=== PATIENT | male | born 1945 | race Caucasian/White ===

== ENCOUNTER 2023-03-19 09:06 | Outpatient (CLI) | payer MEDICARE, BC ==
[2023-03-19 11:05] LABS: APPEARANCE,URINE CLEAR (CLEAR); BASOPHILS % (AUTO) 0.3 % (0.0-2.0); BILIRUBIN,URINE NEGATIVE (NEGATIVE); BLOOD, URINE TRACE-INTA Ery/uL (NEGATIVE); COLOR,URINE YELLOW (YELLOW); EOSINOPHILS # (AUTO) 0.1 K/uL (0.0-0.7); EOSINOPHILS % (AUTO) 1.2 % (0.0-6.0); HEMATOCRIT 48 % (39-51); HEMOGLOBIN 16.1 g/dL (13.5-17.5); KETONES,URINE NEGATIVE (NEGATIVE); LEUKOCYTE ESTERASE ,URINE NEGATIVE (NEGATIVE); LYMPHOCYTES # (AUTO) 1.7 K/uL (0.8-4.8); LYMPHOCYTES % (AUTO) 24.2 % (20.0-44.0); MEAN CORPUSCULAR HEMOGLOBIN 30 PG (26.0-33.0); MEAN CORPUSCULAR HGB CONC 34 g/dl (31.0-36.0); MEAN CORPUSCULAR VOLUME 88 fL (80-96); MONOCYTES # (AUTO) 0.6 K/uL (0.1-1.30); MONOCYTES % (AUTO) 8.1 % (2.0-12.0); NEUTROPHILS # (AUTO) 4.8 K/uL (1.8-8.9); NEUTROPHILS % (AUTO) 66.2 % (43.0-81.0); NITRITE, URINE NEGATIVE (NEGATIVE); PLATELET COUNT (AUTO) 279 K/uL (150-450); PROTEIN,URINE NEGATIVE (NEGATIVE); RED BLOOD CELL COUNT(AUTO) 5.46 MIL/uL (4.5-6.0); RED CELL DISTRIBUTION WIDTH 13.9 % (11.5-15.0); UGLUCOSE NEGATIVE (NEGATIVE); UROBILINOGEN,URINE 0.2 EU/dL (0.2); WHITE BLOOD COUNT (AUTO) 7.2 K/uL (4.3-11.0)
[2023-03-19 11:06] LABS: INR 0.98 (0.91-1.10); PARTIAL THROMBOPLASTIN TIME 30.1 SEC (24.3-34.3); PROTHROMBIN TIME 10.4 SECS (9.2-11.1)
[2023-03-19 11:13] LABS: CALCIUM, SERUM 9.4 mg/dL (8.5-10.1); CARBON DIOXIDE 30 mmol/L (21-32); CHLORIDE 99 mmol/L (98-107); CREATININE 1.2 mg/dL (0.6-1.3); GLUCOSE 114 mg/dL (74-106); SODIUM SERUM 132 mmol/L (136-145); UREA NITROGEN, BLOOD 21 mg/dL (7-18)
[2023-03-19 13:52] LABS: ADD URINE CULTURE NO; BACTERIA,URINE Rare /HPF (None Seen); RBC,URINE 0-2 /HPF (0-2); SQUAMOUS EPITHELIAL CELL,UR Rare /HPF (None Seen); WBC,URINE 0-3 /HPF (0-3)
== END 2023-03-19 23:59 | disposition home or self-care (01) ==
LOC: RAD 09:06
PROVIDERS: ATTEND Internal Medicine Pulmonary Disease
DX: Z01.818 Encounter for other preprocedural examination (principal)
CPT/HCPCS: 36415; 71045-TC; 80048-TC; 81001; 85025-TC; 85610-TC; 85730-TC

== ENCOUNTER 2023-03-26 05:55 | Inpatient (IN) | payer MEDICARE, BC ==
[~2023-03-26] VITALS: Ht 177.8 cm; Wt 89.8 kg
[2023-03-26] MEDS ORDERED: VANCOMYCIN 1 GM VIAL ONE (06:44)
[2023-03-26] MEDS ORDERED: LIDOCAINE 2%-EPI 1:100,000 30 ML VIAL ONE (06:44)
[2023-03-26] MEDS ORDERED: dexaMETHasone SOD PHOSPHATE 10 MG/ML VIAL ONE (06:44)
[2023-03-26] MEDS ORDERED: ANESTHESIA TRAY IN PYXIS 1 EA TRAY MC ONE (06:45)
[2023-03-26] MEDS ORDERED: FAMOTIDINE/PF INJ 20 MG/2 ML VIAL IV ONE (06:47)
[2023-03-26] MEDS ORDERED: MIDAZOLAM HCL 2 MG/2ML VIAL ONE (06:47)
[2023-03-26] MEDS ORDERED: FENTANYL PF 100MCG/2ML AMPUL ONE ×3 (06:47→08:47)
[2023-03-26] MEDS ORDERED: ROCURONIUM BROMIDE 50 MG/5 ML ONE (08:48)
[2023-03-26] MEDS ORDERED: ACETAMINOPHEN 325 MG TABLET ONE (09:52)
[2023-03-26] MEDS ORDERED: IV NS 0.9% 1,000 ML IV PRN (10:00)
[2023-03-26] MEDS ORDERED: ONDANSETRON HCL/PF 4 MG/2 ML VIAL IV PRN (10:00)
[2023-03-26] MEDS ORDERED: HYDROMORPHONE 1 MG/1 ML DISP.SYRIN IV PRN (10:00)
[2023-03-26 10:44] VITALS: BP 164/75; TEMP 97.5; O2SAT 96
[2023-03-26] MEDS: ACETAMINOPHEN 325 MG TABLET PO PRN ×2 (10:49→12:54)
[2023-03-26 12:00] VITALS: BP 136/68; TEMP 98.9; O2SAT 96
[2023-03-26] MEDS: ACETAMINOPHEN W/ CODEINE#3 1 EA TABLET PO PRN ×2 (12:55→18:50)
[2023-03-26 14:34] LABS: THYROID STIMULATING HORMONE 3.462 uIU/mL (0.358-3.74)
[2023-03-26 16:00] VITALS: BP 141/65; TEMP 99.7; O2SAT 93
[2023-03-26 20:00] VITALS: BP 141/55; TEMP 98.1; O2SAT 91
[2023-03-26] MEDS: VANCOMYCIN 1 GM in IV D5W 250ml IV SCH (20:15)
[2023-03-27 08:00] VITALS: BP 155/72; TEMP 98.4; O2SAT 96
[2023-03-27] MEDS: VANCOMYCIN 1 GM in IV D5W 250ml IV SCH (08:23)
== END 2023-03-27 12:01 | disposition home or self-care (01) | DRG 517 ==
LOC: DS 05:55 → MED 05:57
PROVIDERS: ADMIT Internal Medicine; ATTEND Internal Medicine
PROC: 0NSV04Z Reposition Left Mandible with Internal Fixation Device, Open Approach (ICD-10-PCS; principal; 2023-03-26)
PROC: 0NST04Z Reposition Right Mandible with Internal Fixation Device, Open Approach (ICD-10-PCS; 2023-03-26)
PROC: 0NUV07Z Supplement Left Mandible with Autologous Tissue Substitute, Open Approach (ICD-10-PCS; 2023-03-26)
PROC: 0NUT07Z Supplement Right Mandible with Autologous Tissue Substitute, Open Approach (ICD-10-PCS; 2023-03-26)
PROC: 0NBV0ZX Excision of Left Mandible, Open Approach, Diagnostic (ICD-10-PCS; 2023-03-26)
PROC: 0NBT0ZX Excision of Right Mandible, Open Approach, Diagnostic (ICD-10-PCS; 2023-03-26)
DX: M84.48XA Pathological fracture, other site, initial encounter for fracture (principal); M27.2 Inflammatory conditions of jaws; M27.40 Unspecified cyst of jaw; I10 Essential (primary) hypertension; J45.909 Unspecified asthma, uncomplicated; N40.0 Benign prostatic hyperplasia without lower urinary tract symptoms; D16.5 Benign neoplasm of lower jaw bone; R73.9 Hyperglycemia, unspecified; Z98.49 Cataract extraction status, unspecified eye; Z98.890 Other specified postprocedural states
CPT/HCPCS: 36415; 80061-TC; 82962-TC; 84439-TC; 84443-TC; 86850-TC; 87081-TC; G0378; J1100; J2250; J2370; J2405; J2704; J3010; J3370; J3490; J7030; J7060

== ENCOUNTER 2023-09-10 08:50 | Inpatient (IN) | payer MEDICARE, BC ==
[2023-09-10] MEDS ORDERED: dexaMETHasone SOD PHOSPHATE 2 ML ONE (12:18)
[2023-09-10] MEDS ORDERED: LIDOCAINE 2%-EPI 1:100,000 30 ML VIAL ONE (12:18)
[2023-09-10] MEDS ORDERED: VANCOMYCIN 1 GM VIAL ONE (12:19)
[2023-09-10] MEDS ORDERED: OXYMETAZOLINE HCL NASAL SPRAY 30 ML BOTTLE NS ONE (12:19)
[2023-09-10] MEDS ORDERED: FENTANYL PF 100MCG/2ML AMPUL ONE (13:24)
[2023-09-10] MEDS ORDERED: MIDAZOLAM HCL 2 MG/2ML VIAL ONE (13:24)
[2023-09-10] MEDS ORDERED: FAMOTIDINE/PF INJ 20 MG/2 ML VIAL IV ONE (13:25)
[2023-09-10] MEDS ORDERED: ROCURONIUM BROMIDE 50 MG/5 ML ONE (13:25)
[2023-09-10] MEDS ORDERED: LIDOCAINE 1% INJ 50 ML MDV IJ ONE (13:30)
[2023-09-10 14:15] VITALS: BP 137/62; TEMP 98; O2SAT 92
[2023-09-10 16:30] VITALS: BP 134/62; TEMP 98; O2SAT 95
[2023-09-10] MEDS ORDERED: IV NS 0.9% 1,000 ML IV PRN (17:30)
[2023-09-10] MEDS ORDERED: ACETAMINOPHEN 325 MG TABLET PO PRN (17:30)
[2023-09-10] MEDS ORDERED: ONDANSETRON HCL/PF 4 MG/2 ML VIAL IV PRN (17:30)
[2023-09-10] MEDS ORDERED: HYDROMORPHONE 1 MG/1 ML DISP.SYRIN IV PRN (17:30)
[2023-09-10 18:00] VITALS: BP 147/64; TEMP 97.9; O2SAT 95
== END 2023-09-10 19:01 | disposition home or self-care (01) | DRG 496 ==
LOC: DS 08:50 → MED 16:18
PROVIDERS: ADMIT Nurse Practitioner Family; ATTEND Nurse Practitioner Family
PROC: 0NPW04Z Removal of Internal Fixation Device from Facial Bone, Open Approach (ICD-10-PCS; principal; 2023-09-10)
PROC: 0WB30ZX Excision of Oral Cavity and Throat, Open Approach, Diagnostic (ICD-10-PCS; 2023-09-10)
PROC: 0NBV0ZX Excision of Left Mandible, Open Approach, Diagnostic (ICD-10-PCS; 2023-09-10)
PROC: 0NBT0ZX Excision of Right Mandible, Open Approach, Diagnostic (ICD-10-PCS; 2023-09-10)
DX: T84.69XA Infection and inflammatory reaction due to internal fixation device of other site, initial encounter (principal); K12.2 Cellulitis and abscess of mouth; Y83.8 Other surgical procedures as the cause of abnormal reaction of the patient, or of later complication, without mention of misadventure at the time of the procedure; Y92.9 Unspecified place or not applicable; M27.2 Inflammatory conditions of jaws; N40.0 Benign prostatic hyperplasia without lower urinary tract symptoms; E78.5 Hyperlipidemia, unspecified; D16.5 Benign neoplasm of lower jaw bone; Z98.890 Other specified postprocedural states
CPT/HCPCS: 88305-TC; 88311-TC; G0378; J1100; J2250; J2405; J2704; J2765; J3010; J3370; J3490; J7030